=== PATIENT | male | born 1945 | race Caucasian/White ===

== ENCOUNTER 2020-05-02 13:10 | Outpatient (CLI) | payer MEDICARE, BC ==
[2020-05-02] MEDS ORDERED: OMNIPAQUE 350 MG/ML, 150 ML BOTTLE ONE (14:00)
== END 2020-05-02 23:59 | disposition home or self-care (01) ==
LOC: CFH 13:10
PROVIDERS: ATTEND Radiology Diagnostic Radiology
DX: I71.4 Abdominal aortic aneurysm, without rupture (principal); I70.8 Atherosclerosis of other arteries; I70.213 Atherosclerosis of native arteries of extremities with intermittent claudication, bilateral legs
CPT/HCPCS: 75635; 82565; Q9967